=== PATIENT | female | born 1935 | race Caucasian/White ===

== ENCOUNTER 2020-01-04 12:36 | Inpatient (IN) ==
[2020-01-04 15:24] LABS: Basophils # 0.1 10*3/uL (0.0-0.2); Basophils % 0.3 % (0.0-0.8); Hematocrit 36.5 VOL% (35.7-47.0); Hemoglobin 11.9 GM/DL (12.0-16.0); Immature Granulocytes Absolute 0.22 #; Lymphocytes % 4.4 % (21.3-54.2); Mean Corpuscular HGB Conc 32.6 GM/DL (32-36); Mean Corpuscular Volume 81.7 FL (87-102); Mean Platelet Volume 9.8 FL (9.6-12.0); Monocytes % 4.4 % (1.7-12.7); Neutrophils % 89.9 % (38.7-73.9); Platelet Count 247 T/CUMM (130-400); Red Blood Count 4.47 MC/CUMM (3.8-5.5); Red Cell Distribution Width 14.2 % (9.3-17.3); White Blood Count 22.9 T/CUMM (4-12)
[2020-01-04 15:36] LABS: Alanine Aminotransferase 34 U/L (13-56); Albumin 3.3 G/DL (3.4-5.0); Alkaline Phosphatase 88 U/L (45-117); Aspartate Amino Transferase 30 U/L (0-37); Blood Urea Nitrogen 28 MG/DL (7-18); Calcium 9.2 MG/DL (8.5-10.1); Estimated Glom Filtration Rate 28 ML/MIN; Glucose 275 MG/DL (74-106); Osmolality,Calculated 281.4 MOS/KG (273-304); Total Protein 8.1 G/DL (6.4-8.3)
[2020-01-04 15:46] LABS: Apearance,Urine CLOUDY (Clear); Bacteria,Urine Occasional /HPF (Few); Bilirubin,Urine Negative (Negative); Blood, Urine Moderate mg/dL (Negative); Glucose,Urine (UA) 150 mg/dL (Negative); Hyaline Casts,Urine 1 /LPF (0-3); Ketones,Urine 20 mg/dL (Negative); Mucus,Urine Occasional /LPF (Occasional); Nitrite,Urine Negative (Negative); Protein,Urine 100 MG/DL; RBC,Urine 17 /HPF (0-4); Squamous Epithelial Cell,Urine Occasional /HPF (0-10); Transitional Epi Cells,Urine Occasional /HPF (<1); Urine Color Yellow (Yellow); Urine Specific Gravity 1.017 (1.001-1.035); Urine Urobilinogen < 2.0 EU/DL (0.2-1.0); WBC,Urine 66 /HPF (0-6)
[2020-01-04 15:47] LABS: Lymphocytes 6 % (20-55); Segmented Neutrophils 88 % (50-85); Total Cells Counted 100
[2020-01-04 15:48] LABS: Elliptocytes Few; Platelet Estimate Adequate
[2020-01-04] MEDS ORDERED: SODIUM CHLORIDE 0.9% 500 ML IV STA (15:51)
[2020-01-04] MEDS ORDERED: PANTOPRAZOLE 40 MG VIAL IV STA (15:51)
[2020-01-04] MEDS ORDERED: ONDANSETRON 4 MG/2 ML VIAL IV STA (15:51)
[2020-01-04] MEDS ORDERED: cefTRIAXone 1,000 MG in SODIUM CHLORIDE 0.9% 100 ML IV STA (15:51)
[2020-01-04] MEDS ORDERED: SODIUM CHLORIDE 0.9% 1,000 ML IV SCH (19:06)
[2020-01-04] MEDS ORDERED: GLUCAGON 1 MG VIAL IM PRN (19:06)
[2020-01-04] MEDS ORDERED: ONDANSETRON 4 MG/2 ML VIAL IV PRN (19:06)
[2020-01-04] MEDS ORDERED: DEXTROSE 10% 250 ML BAG IV PRN (19:06)
[2020-01-04] MEDS: DOCUSATE SODIUM 100 MG CAPSULE PO SCH (21:42)
[2020-01-04] MEDS: FONDAPARINUX 2.5 MG/0.5 ML SYRINGE SUBCUT SCH (21:42)
[2020-01-05] MEDS: ACETAMINOPHEN 325 MG TABLET PO PRN ×2 (00:30→15:34)
[2020-01-05 05:52] LABS: Basophils # 0.1 10*3/uL (0.0-0.2); Basophils % 0.5 % (0.0-0.8); Eosinophils % 0.1 % (0.00-10.9); Hematocrit 33.1 VOL% (35.7-47.0); Hemoglobin 10.6 GM/DL (12.0-16.0); Immature Granulocytes % 0.6 %; Immature Granulocytes Absolute 0.07 #; Lymphocytes # 1.2 10*3/uL (1.4-4.0); Lymphocytes % 10.5 % (21.3-54.2); Mean Corpuscular Volume 83.6 FL (87-102); Monocytes % 7.2 % (1.7-12.7); Neutrophils % 81.1 % (38.7-73.9); Platelet Count 203 T/CUMM (130-400); Red Blood Count 3.96 MC/CUMM (3.8-5.5); Red Cell Distribution Width 14.1 % (9.3-17.3); White Blood Count 10.9 T/CUMM (4-12)
[2020-01-05 06:09] LABS: Calcium 8.6 MG/DL (8.5-10.1)
[2020-01-05] MEDS: DOCUSATE SODIUM 100 MG CAPSULE PO SCH ×2 (09:23→21:10)
[2020-01-05] MEDS: PANTOPRAZOLE 40 MG TABLET PO SCH (09:23)
[2020-01-05] MEDS: SODIUM CHLORIDE 0.45% 1,000 ML IV SCH (10:15)
[2020-01-05] MEDS: cefTRIAXone 1,000 MG in SYRINGE 1 EACH IV SCH (15:34)
[2020-01-05] MEDS ORDERED: DEXAMETHASONE 0.1% OPH SOLN 5 ML BOTTLE BOTH EYES SCH (21:00)
[2020-01-05] MEDS: SIMVASTATIN 20 MG TABLET PO SCH (21:10)
[2020-01-05] MEDS: GLIMEPIRIDE 2 MG TABLET PO SCH (21:10)
[2020-01-05] MEDS: FONDAPARINUX 2.5 MG/0.5 ML SYRINGE SUBCUT SCH (21:57)
[2020-01-06] MEDS: SODIUM CHLORIDE 0.45% 1,000 ML IV SCH ×2 (06:58→13:37)
[2020-01-06] MEDS: VALSARTAN 80 MG TABLET PO SCH (09:22)
[2020-01-06] MEDS: GLIMEPIRIDE 2 MG TABLET PO SCH ×2 (09:22→20:10)
[2020-01-06] MEDS: PANTOPRAZOLE 40 MG TABLET PO SCH (09:22)
[2020-01-06] MEDS: MELOXICAM 7.5 MG TABLET PO SCH (09:22)
[2020-01-06] MEDS: hydroCHLOROthiazide 12.5 MG CAPSULE PO SCH (09:22)
[2020-01-06] MEDS: LEVOTHYROXINE 100 MCG TABLET PO SCH (09:22)
[2020-01-06] MEDS: DOCUSATE SODIUM 100 MG CAPSULE PO SCH ×2 (09:22→20:10)
[2020-01-06] MEDS: cefTRIAXone 1,000 MG in SYRINGE 1 EACH IV SCH (14:44)
[2020-01-06] MEDS: POTASSIUM CHLORIDE 20 MEQ TABLET PO PRN ×3 (17:53→20:10)
[2020-01-06] MEDS: BRIMONIDINE/TIMOLOL OPH SOLN 5 ML BOTTLE RIGHT EYE SCH (20:10)
[2020-01-06] MEDS: SIMVASTATIN 20 MG TABLET PO SCH (20:10)
[2020-01-06] MEDS: DEXAMETHASONE 0.1% OPH SOLN 5 ML BOTTLE LEFT EYE SCH (20:10)
[2020-01-06] MEDS: FONDAPARINUX 2.5 MG/0.5 ML SYRINGE SUBCUT SCH (20:10)
[2020-01-07] MEDS: SODIUM CHLORIDE 0.45% 1,000 ML IV SCH ×2 (03:33→17:15)
[2020-01-07] MEDS: DOCUSATE SODIUM 100 MG CAPSULE PO SCH ×2 (08:10→20:20)
[2020-01-07] MEDS: hydroCHLOROthiazide 12.5 MG CAPSULE PO SCH (08:10)
[2020-01-07] MEDS: GLIMEPIRIDE 2 MG TABLET PO SCH ×2 (08:10→20:20)
[2020-01-07] MEDS: PANTOPRAZOLE 40 MG TABLET PO SCH (08:10)
[2020-01-07] MEDS: MELOXICAM 7.5 MG TABLET PO SCH (08:10)
[2020-01-07] MEDS: LEVOTHYROXINE 100 MCG TABLET PO SCH (08:10)
[2020-01-07] MEDS: VALSARTAN 80 MG TABLET PO SCH (08:10)
[2020-01-07] MEDS: cefTRIAXone 1,000 MG in SYRINGE 1 EACH IV SCH (17:14)
[2020-01-07] MEDS: FONDAPARINUX 2.5 MG/0.5 ML SYRINGE SUBCUT SCH (20:20)
[2020-01-07] MEDS: SIMVASTATIN 20 MG TABLET PO SCH (20:20)
[2020-01-07] MEDS: BRIMONIDINE/TIMOLOL OPH SOLN 5 ML BOTTLE RIGHT EYE SCH (20:20)
[2020-01-07] MEDS: DEXAMETHASONE 0.1% OPH SOLN 5 ML BOTTLE LEFT EYE SCH (20:20)
[2020-01-07] MEDS: ACETAMINOPHEN 325 MG TABLET PO PRN (20:20)
[2020-01-08 05:52] LABS: Basophils # 0.1 10*3/uL (0.0-0.2); Basophils % 1.1 % (0.0-0.8); Eosinophils # 0.4 10*3/uL (0.0-0.87); Eosinophils % 8.3 % (0.00-10.9); Hemoglobin 9.3 GM/DL (12.0-16.0); Immature Granulocytes % 0.2 %; Immature Granulocytes Absolute 0.01 #; Lymphocytes # 1.4 10*3/uL (1.4-4.0); Lymphocytes % 31.9 % (21.3-54.2); Mean Corpuscular HGB Conc 32.1 GM/DL (32-36); Mean Corpuscular Volume 81.9 FL (87-102); Mean Platelet Volume 9.7 FL (9.6-12.0); Monocytes % 11.2 % (1.7-12.7); Neutrophils % 47.3 % (38.7-73.9); Platelet Count 203 T/CUMM (130-400); Red Blood Count 3.54 MC/CUMM (3.8-5.5); Red Cell Distribution Width 14.1 % (9.3-17.3); White Blood Count 4.5 T/CUMM (4-12)
[2020-01-08 06:26] LABS: Albumin 2.3 G/DL (3.4-5.0); Bilirubin,Total 1.3 MG/DL (0.2-1.0); Osmolality,Calculated 279.5 MOS/KG (273-304); Total Protein 6.2 G/DL (6.4-8.3)
[2020-01-08] MEDS: SODIUM CHLORIDE 0.45% 1,000 ML IV SCH ×2 (07:24→09:41)
[2020-01-08] MEDS: VALSARTAN 80 MG TABLET PO SCH (09:20)
[2020-01-08] MEDS: hydroCHLOROthiazide 12.5 MG CAPSULE PO SCH (09:20)
[2020-01-08] MEDS: DOCUSATE SODIUM 100 MG CAPSULE PO SCH ×2 (09:20→20:24)
[2020-01-08] MEDS: PANTOPRAZOLE 40 MG TABLET PO SCH (09:20)
[2020-01-08] MEDS: GLIMEPIRIDE 2 MG TABLET PO SCH ×2 (09:20→20:24)
[2020-01-08] MEDS: LEVOTHYROXINE 100 MCG TABLET PO SCH (09:20)
[2020-01-08] MEDS: MELOXICAM 7.5 MG TABLET PO SCH (09:20)
[2020-01-08] MEDS: POTASSIUM CHLORIDE 20 MEQ TABLET PO PRN (09:43)
[2020-01-08] MEDS: cefTRIAXone 1,000 MG in SYRINGE 1 EACH IV SCH (14:50)
[2020-01-08] MEDS: FONDAPARINUX 2.5 MG/0.5 ML SYRINGE SUBCUT SCH (20:23)
[2020-01-08] MEDS: SIMVASTATIN 20 MG TABLET PO SCH (20:24)
[2020-01-08] MEDS: BRIMONIDINE/TIMOLOL OPH SOLN 5 ML BOTTLE RIGHT EYE SCH (20:26)
[2020-01-08] MEDS: DEXAMETHASONE 0.1% OPH SOLN 5 ML BOTTLE LEFT EYE SCH (20:26)
[2020-01-09] MEDS ORDERED: OLMESARTAN 20 MG TABLET PO SCH (09:00)
[2020-01-09] MEDS: hydroCHLOROthiazide 12.5 MG CAPSULE PO SCH (09:10)
[2020-01-09] MEDS: VALSARTAN 80 MG TABLET PO SCH (09:17)
[2020-01-09] MEDS: MELOXICAM 7.5 MG TABLET PO SCH (09:18)
[2020-01-09] MEDS: PANTOPRAZOLE 40 MG TABLET PO SCH (09:18)
[2020-01-09] MEDS: LEVOTHYROXINE 100 MCG TABLET PO SCH (09:18)
[2020-01-09] MEDS: DOCUSATE SODIUM 100 MG CAPSULE PO SCH (09:19)
[2020-01-09] MEDS: GLIMEPIRIDE 2 MG TABLET PO SCH (09:19)
[2020-01-09 10:04] VITALS: BP 159/73
== END 2020-01-09 10:55 | disposition home or self-care (01) | DRG 872 ==
LOC: N.ED 12:36 → N.EDINP 17:41 → N.TELEN 17:48 → N.2E 18:06
PROVIDERS: ADMIT Family Medicine; ATTEND Family Medicine

== ENCOUNTER 2020-09-03 09:05 | Inpatient (IN) ==
[2020-09-03] MEDS ORDERED: GLUCAGON 1 MG VIAL IM PRN (10:21)
[2020-09-03] MEDS ORDERED: DEXTROSE 50% 25 GM/50 ML VIAL IV PRN (10:21)
[2020-09-03] MEDS ORDERED: ONDANSETRON 4 MG/2 ML VIAL IV PRN (10:21)
[2020-09-03] MEDS ORDERED: ACETAMINOPHEN 325 MG TABLET PO PRN ×2 (10:21→16:37)
[2020-09-03] MEDS: INSULIN LISPRO 100 UNIT/ML SUBCUT SCH ×3 (12:02→22:08)
[2020-09-03 12:08] LABS: Basophils # 0.1 10*3/uL (0.0-0.2); Basophils % 0.6 % (0.0-0.8); Eosinophils # 0.2 10*3/uL (0.0-0.87); Eosinophils % 1.6 % (0.00-10.9); Hematocrit 38.2 VOL% (35.7-47.0); Hemoglobin 12.9 GM/DL (12.0-16.0); Immature Granulocytes % 0.3 %; Immature Granulocytes Absolute 0.03 #; Lymphocytes # 1.5 10*3/uL (1.4-4.0); Lymphocytes % 15.1 % (21.3-54.2); Mean Corpuscular HGB Conc 33.8 GM/DL (32-36); Mean Corpuscular Volume 80.4 FL (87-102); Mean Platelet Volume 9.8 FL (9.6-12.0); Monocytes % 7.1 % (1.7-12.7); Neutrophils % 75.3 % (38.7-73.9); Platelet Count 274 T/CUMM (130-400); Red Blood Count 4.75 MC/CUMM (3.8-5.5); Red Cell Distribution Width 13.3 % (9.3-17.3); White Blood Count 9.6 T/CUMM (4-12)
[2020-09-03] MEDS: SODIUM CHLORIDE 0.45% 1,000 ML IV SCH (12:09)
[2020-09-03 12:33] LABS: Albumin 3.5 G/DL (3.4-5.0); Bilirubin,Total 0.5 MG/DL (0.2-1.0); Calcium 9.6 MG/DL (8.5-10.1); Total Protein 7.5 G/DL (6.4-8.3)
[2020-09-03 13:01] LABS: Bilirubin,Urine Negative (Negative); Blood, Urine Negative (Negative); Glucose,Urine (UA) Negative (Negative); Hyaline Casts,Urine 3 /LPF (0-3); Ketones,Urine 5 mg/dL (Negative); Mucus,Urine Occasional /LPF (Occasional); Nitrite,Urine Negative (Negative); Protein,Urine Negative; RBC,Urine 1 /HPF (0-4); Squamous Epithelial Cell,Urine Moderate /HPF (0-10); Urine Appearance Slightly Hazy (Clear); Urine Color Yellow (Yellow); Urine Specific Gravity 1.014 (1.001-1.035); Urine Urobilinogen < 2.0 EU/DL (0.2-1.0); WBC,Urine 2 /HPF (0-6)
[2020-09-03] MEDS ORDERED: SODIUM CHLORIDE 0.9% 500 ML IV ONE (16:03)
[2020-09-03] MEDS ORDERED: ENOXAPARIN 30 MG/0.3 ML SYRINGE SUBCUT SCH (21:00)
[2020-09-03] MEDS ORDERED: DEXAMETHASONE 0.1% LEFT EYE SCH (21:00)
[2020-09-03] MEDS ORDERED: BRIMONIDINE/TIMOLOL OPH SOLN 5 ML BOTTLE RIGHT EYE SCH (21:00)
[2020-09-03] MEDS: GLIMEPIRIDE 2 MG TABLET PO SCH (21:33)
[2020-09-03] MEDS: DOCUSATE SODIUM 100 MG CAPSULE PO SCH (21:33)
[2020-09-04] MEDS: SODIUM CHLORIDE 0.45% 1,000 ML IV SCH (01:40)
[2020-09-04 07:39] LABS: Calcium 9.2 MG/DL (8.5-10.1); Osmolality,Calculated 274.8 MOS/KG (273-304)
[2020-09-04] MEDS: DOCUSATE SODIUM 100 MG CAPSULE PO SCH (08:46)
[2020-09-04] MEDS: GLIMEPIRIDE 2 MG TABLET PO SCH (08:47)
[2020-09-04] MEDS ORDERED: hydroCHLOROthiazide 12.5 MG CAPSULE PO SCH (09:00)
[2020-09-04] MEDS ORDERED: PANTOPRAZOLE 40 MG TABLET PO SCH (09:00)
[2020-09-04] MEDS ORDERED: LEVOTHYROXINE 88 MCG TABLET PO SCH (09:00)
[2020-09-04] MEDS ORDERED: amLODIPine 2.5 MG TABLET PO SCH (09:00)
[2020-09-04] MEDS ORDERED: SERTRALINE 25 MG TABLET PO SCH (09:00)
[2020-09-04] MEDS ORDERED: MELOXICAM 7.5 MG TABLET PO SCH (09:00)
[2020-09-04] MEDS ORDERED: OLMESARTAN 20 MG TABLET PO SCH (09:00)
[2020-09-04] MEDS: INSULIN LISPRO 100 UNIT/ML SUBCUT SCH ×2 (09:57→12:28)
[2020-09-04 12:40] VITALS: BP 157/83
== END 2020-09-04 14:02 | disposition home health service (06) | DRG 881 ==
LOC: N.TELES → OBSVTOIN 10:35
PROVIDERS: ADMIT Family Medicine; ATTEND Family Medicine

== ENCOUNTER 2020-09-07 19:34 | Observation (INO) ==
[2020-09-07 20:08] LABS: Basophils % 0.2 % (0.0-0.8); Eosinophils # 0.1 10*3/uL (0.0-0.87); Eosinophils % 0.8 % (0.00-10.9); Hematocrit 30.8 VOL% (35.7-47.0); Hemoglobin 10.7 GM/DL (12.0-16.0); Immature Granulocytes % 0.3 %; Immature Granulocytes Absolute 0.03 #; Lymphocytes # 1.4 10*3/uL (1.4-4.0); Lymphocytes % 15.6 % (21.3-54.2); Mean Corpuscular HGB Conc 34.7 GM/DL (32-36); Mean Corpuscular Volume 78.2 FL (87-102); Mean Platelet Volume 9.3 FL (9.6-12.0); Monocytes # 0.7 10*3/uL (0.11-0.8); Monocytes % 7.1 % (1.7-12.7); Platelet Count 241 T/CUMM (130-400); Red Blood Count 3.94 MC/CUMM (3.8-5.5); Red Cell Distribution Width 13.7 % (9.3-17.3); White Blood Count 9.2 T/CUMM (4-12)
[2020-09-07] MEDS ORDERED: SODIUM CHLORIDE 0.9% 1,000 ML IV STA (20:15)
[2020-09-07 20:16] LABS: Bilirubin,Urine Negative (Negative); Blood, Urine Negative (Negative); Glucose,Urine (UA) 150 mg/dL (Negative); Hyaline Casts,Urine 3 /LPF (0-3); Ketones,Urine Negative (Negative); Mucus,Urine Occasional /LPF (Occasional); Nitrite,Urine Negative (Negative); Protein,Urine Negative; Squamous Epithelial Cell,Urine Occasional /HPF (0-10); Urine Appearance CLEAR (Clear); Urine Color Yellow (Yellow); Urine Specific Gravity 1.013 (1.001-1.035); Urine Urobilinogen < 2.0 EU/DL (0.2-1.0)
[2020-09-07 20:37] LABS: Albumin 3.5 G/DL (3.4-5.0); Bilirubin,Total 0.4 MG/DL (0.2-1.0); Calcium 8.7 MG/DL (8.5-10.1); Osmolality,Calculated 270.2 MOS/KG (273-304); Potassium 4.1 MMOL/L (3.5-5.1); Total Protein 6.9 G/DL (6.4-8.3)
[2020-09-07 20:42] LABS: Acetaminophen < 2.0 UG/ML (10-30); Salicylate < 2.8 MG/DL (2.8-20)
[2020-09-07 21:08] LABS: Barbiturates Screen,Urine Negative (Negative); Benzodiazepines Screen,Urine Negative (Negative); Cannabinoid Screen,Urine Negative (Negative); Opiate Screen,Urine Negative (Negative); Phencyclidine Screen,Urine Negative (Negative)
[2020-09-07 21:29] LABS: ABG Base Excess -0.8 MMOL/L (-2.5-2.5); ABG HCO3 23.7 MMOL/L (20-26); ABG Oxygen Saturation 96.3 % (95-100); ABG PCO2 38.1 MM HG (35-48); ABG PH 7.401 (7.35-7.45); ABG PO2 89.9 MM HG (80-95); ABG TCO2 21.2 MMOL/L (23-27)
[2020-09-07] MEDS ORDERED: ACETAMINOPHEN 325 MG TABLET PO PRN (22:38)
[2020-09-07] MEDS ORDERED: GLUCAGON 1 MG VIAL IM PRN (22:38)
[2020-09-07] MEDS ORDERED: DEXTROSE 50% 25 GM/50 ML VIAL IV PRN (22:38)
[2020-09-07] MEDS ORDERED: ONDANSETRON 4 MG/2 ML VIAL IV PRN (22:38)
[2020-09-08] MEDS ORDERED: hydrALAZINE 20 MG/1 ML VIAL IV ONE (00:47)
[2020-09-08] MEDS ORDERED: INFLUENZA VIRUS VACCINE 0.5 ML SYRINGE IM ONE (04:15)
[2020-09-08 06:07] LABS: Basophils % 0.2 % (0.0-0.8); Eosinophils % 0.2 % (0.00-10.9); Hematocrit 33.5 VOL% (35.7-47.0); Hemoglobin 11.2 GM/DL (12.0-16.0); Immature Granulocytes % 0.5 %; Immature Granulocytes Absolute 0.05 #; Lymphocytes # 1.3 10*3/uL (1.4-4.0); Lymphocytes % 12.2 % (21.3-54.2); Mean Corpuscular HGB Conc 33.4 GM/DL (32-36); Mean Corpuscular Volume 78.5 FL (87-102); Mean Platelet Volume 9.7 FL (9.6-12.0); Monocytes # 0.7 10*3/uL (0.11-0.8); Monocytes % 6.6 % (1.7-12.7); Neutrophils % 80.3 % (38.7-73.9); Platelet Count 289 T/CUMM (130-400); Red Blood Count 4.27 MC/CUMM (3.8-5.5); Red Cell Distribution Width 13.9 % (9.3-17.3); White Blood Count 10.3 T/CUMM (4-12)
[2020-09-08 06:40] LABS: Albumin 3.6 G/DL (3.4-5.0); Bilirubin,Total 0.6 MG/DL (0.2-1.0); Calcium 9.4 MG/DL (8.5-10.1); Osmolality,Calculated 273.7 MOS/KG (273-304); Potassium 4.2 MMOL/L (3.5-5.1); Total Protein 7.2 G/DL (6.4-8.3)
[2020-09-08] MEDS: PANTOPRAZOLE 40 MG TABLET PO SCH (09:53)
[2020-09-08] MEDS: DOCUSATE SODIUM 100 MG CAPSULE PO SCH ×2 (09:53→21:57)
[2020-09-08] MEDS: DEXTROSE 5% NACL 0.9% 1,000 ML IV SCH ×2 (14:40)
[2020-09-08] MEDS: SODIUM CHLORIDE 0.9% 1,000 ML IV SCH (14:40)
[2020-09-08] MEDS: SIMVASTATIN 20 MG TABLET PO SCH (21:57)
[2020-09-08] MEDS: BRIMONIDINE/TIMOLOL OPH SOLN 5 ML BOTTLE RIGHT EYE SCH (21:57)
[2020-09-08] MEDS: DEXAMETHASONE 0.1% OPH SOLN 5 ML BOTTLE LEFT EYE SCH (21:57)
[2020-09-09 05:52] LABS: Basophils % 0.4 % (0.0-0.8); Eosinophils # 0.1 10*3/uL (0.0-0.87); Hematocrit 26.4 VOL% (35.7-47.0); Immature Granulocytes % 0.4 %; Immature Granulocytes Absolute 0.03 #; Lymphocytes # 1.4 10*3/uL (1.4-4.0); Lymphocytes % 18.5 % (21.3-54.2); Mean Corpuscular HGB Conc 34.1 GM/DL (32-36); Mean Platelet Volume 9.2 FL (9.6-12.0); Monocytes # 0.7 10*3/uL (0.11-0.8); Monocytes % 8.9 % (1.7-12.7); Neutrophils % 70.8 % (38.7-73.9); Platelet Count 217 T/CUMM (130-400); Red Cell Distribution Width 14.1 % (9.3-17.3); White Blood Count 7.7 T/CUMM (4-12)
[2020-09-09] MEDS: LEVOTHYROXINE 88 MCG TABLET PO SCH (06:13)
[2020-09-09 06:16] LABS: Calcium 8.4 MG/DL (8.5-10.1); Osmolality,Calculated 283.8 MOS/KG (273-304); Potassium 3.9 MMOL/L (3.5-5.1)
[2020-09-09] MEDS: SERTRALINE 25 MG TABLET PO SCH (08:19)
[2020-09-09] MEDS: PANTOPRAZOLE 40 MG TABLET PO SCH (08:19)
[2020-09-09] MEDS: DOCUSATE SODIUM 100 MG CAPSULE PO SCH ×2 (08:19→21:40)
[2020-09-09] MEDS: amLODIPine 2.5 MG TABLET PO SCH (08:19)
[2020-09-09] MEDS: SODIUM CHLORIDE 0.9% 1,000 ML IV SCH ×2 (08:21→08:30)
[2020-09-09] MEDS: SIMVASTATIN 20 MG TABLET PO SCH (21:40)
[2020-09-09] MEDS: BRIMONIDINE/TIMOLOL OPH SOLN 5 ML BOTTLE RIGHT EYE SCH (22:07)
[2020-09-09] MEDS: DEXAMETHASONE 0.1% OPH SOLN 5 ML BOTTLE LEFT EYE SCH (22:08)
[2020-09-10] MEDS: SODIUM CHLORIDE 0.9% 1,000 ML IV SCH (06:09)
[2020-09-10] MEDS: LEVOTHYROXINE 88 MCG TABLET PO SCH (06:21)
[2020-09-10] MEDS: DOCUSATE SODIUM 100 MG CAPSULE PO SCH ×2 (10:08→20:56)
[2020-09-10] MEDS: amLODIPine 2.5 MG TABLET PO SCH (10:08)
[2020-09-10] MEDS: SERTRALINE 25 MG TABLET PO SCH (10:09)
[2020-09-10] MEDS: PANTOPRAZOLE 40 MG TABLET PO SCH (10:09)
[2020-09-10] MEDS ORDERED: INSULIN LISPRO 100 UNIT/ML ONE ×2 (12:36→12:37)
[2020-09-10] MEDS: INSULIN LISPRO 100 UNIT/ML SUBCUT SCH ×3 (12:38→20:56)
[2020-09-10] MEDS: DEXAMETHASONE 0.1% OPH SOLN 5 ML BOTTLE LEFT EYE SCH (20:56)
[2020-09-10] MEDS: SIMVASTATIN 20 MG TABLET PO SCH (20:56)
[2020-09-10] MEDS: BRIMONIDINE/TIMOLOL OPH SOLN 5 ML BOTTLE RIGHT EYE SCH (20:56)
[2020-09-11] MEDS: SODIUM CHLORIDE 0.9% 1,000 ML IV SCH (02:13)
[2020-09-11] MEDS: LEVOTHYROXINE 88 MCG TABLET PO SCH (05:28)
[2020-09-11 08:20] VITALS: BP 191/86
[2020-09-11] MEDS: INSULIN LISPRO 100 UNIT/ML SUBCUT SCH (08:54)
[2020-09-11] MEDS: SERTRALINE 25 MG TABLET PO SCH (08:54)
[2020-09-11] MEDS: PANTOPRAZOLE 40 MG TABLET PO SCH (08:54)
[2020-09-11] MEDS: DOCUSATE SODIUM 100 MG CAPSULE PO SCH (08:54)
[2020-09-11] MEDS: amLODIPine 2.5 MG TABLET PO SCH (08:54)
== END 2020-09-11 10:54 ==
LOC: EDBD → EDUNIT# → N.ED 19:34 → N.EDINP 19:34 → N.TELEN 23:06
PROVIDERS: ADMIT Family Medicine; ATTEND Family Medicine

== ENCOUNTER 2020-09-08 12:58 | Observation (INO) | END 2020-09-11 23:59 | disposition home or self-care (01) | LOC: N.SDSINP | PROVIDERS: ADMIT Family Medicine; ATTEND Family Medicine ==

== ENCOUNTER 2022-05-20 14:42 | Inpatient (IN) ==
[2022-05-20] MEDS ORDERED: ONDANSETRON 4 MG/2 ML VIAL IV PRN (15:13)
[2022-05-20] MEDS ORDERED: ACETAMINOPHEN 325 MG TABLET PO PRN (15:13)
[2022-05-20] MEDS ORDERED: GLUCAGON 1 MG VIAL IM PRN (15:16)
[2022-05-20] MEDS ORDERED: MAGNESIUM HYDROXIDE SUSP 30 ML UDCUP PO PRN (15:16)
[2022-05-20] MEDS ORDERED: SODIUM CHLORIDE 0.9% 1,000 ML IV PRN (15:25)
[2022-05-20] MEDS: PANTOPRAZOLE 40 MG TABLET PO SCH (17:24)
[2022-05-20] MEDS: SODIUM CHLORIDE 0.9% 1,000 ML IV SCH (17:24)
[2022-05-20] MEDS ORDERED: cloNIDine 0.1 MG TABLET PO PRN (18:11)
[2022-05-20 18:38] LABS: Basophils % 0.5 % (0.0-0.8); Eosinophils # 0.9 10*3/uL (0.0-0.87); Eosinophils % 9.8 % (0.00-10.9); Hematocrit 28.8 VOL% (35.7-47.0); Hemoglobin 7.9 GM/DL (12.0-16.0); Immature Granulocytes % 0.3 %; Immature Granulocytes Absolute 0.03 #; Lymphocytes % 23.4 % (21.3-54.2); Mean Corpuscular HGB Conc 27.4 GM/DL (32-36); Mean Corpuscular Volume 65.6 FL (87-102); Mean Platelet Volume 9.1 FL (9.6-12.0); Monocytes # 0.6 10*3/uL (0.11-0.8); Monocytes % 6.9 % (1.7-12.7); Neutrophils % 59.1 % (38.7-73.9); Platelet Count 228 T/CUMM (130-400); Red Blood Count 4.39 MC/CUMM (3.8-5.5); White Blood Count 8.7 T/CUMM (4-12)
[2022-05-20 18:49] LABS: Platelet Estimate Normal
[2022-05-20 18:51] LABS: Anisocytosis 2+; Hypochromia 2+; Microcytosis 2+; Ovalocytes 1+; Poikilocytosis 1+
[2022-05-20] MEDS ORDERED: guaiFENesin 200 MG/10 ML UDCUP PO PRN (19:06)
[2022-05-20] MEDS: INSULIN REGULAR 100 UNIT/ML SUBCUT SCH (19:14)
[2022-05-20] MEDS ORDERED: amLODIPine 5 MG TABLET PO ONE (20:54)
[2022-05-20] MEDS: carvediloL 3.125 MG TABLET PO SCH (22:14)
[2022-05-20] MEDS: DOCUSATE SODIUM 100 MG CAPSULE PO SCH (22:15)
[2022-05-20] MEDS: SIMVASTATIN 20 MG TABLET PO SCH (22:15)
[2022-05-20] MEDS: INSULIN GLARGINE 100 UNIT/ML SUBCUT SCH (22:15)
[2022-05-20] MEDS: BRIMONIDINE/TIMOLOL OPH SOLN 5 ML BOTTLE RIGHT EYE SCH (22:15)
[2022-05-20] MEDS: guaiFENesin 200 MG/10 ML UDCUP PO PRN (22:16)
[2022-05-21] MEDS: SODIUM CHLORIDE 0.9% 1,000 ML IV SCH ×3 (06:16→21:25)
[2022-05-21] MEDS ORDERED: FUROSEMIDE 20 MG/2 ML VIAL IV ONE (06:23)
[2022-05-21] MEDS: LEVOTHYROXINE 88 MCG TABLET PO SCH (07:16)
[2022-05-21] MEDS: INSULIN REGULAR 100 UNIT/ML SUBCUT SCH ×2 (08:11→16:37)
[2022-05-21] MEDS: GLIMEPIRIDE 2 MG TABLET PO SCH ×2 (09:03→21:23)
[2022-05-21] MEDS: FERROUS SULFATE 300 MG/5 ML UDCUP PO SCH ×2 (09:03→21:24)
[2022-05-21] MEDS: DOCUSATE SODIUM 100 MG CAPSULE PO SCH ×2 (09:03→21:23)
[2022-05-21] MEDS: ISOSORBIDE MONONITRATE 30 MG TABLET PO SCH (09:04)
[2022-05-21] MEDS: amLODIPine 5 MG TABLET PO SCH (09:04)
[2022-05-21] MEDS: SERTRALINE 100 MG TABLET PO SCH (09:04)
[2022-05-21] MEDS: PANTOPRAZOLE 40 MG TABLET PO SCH (09:04)
[2022-05-21] MEDS: carvediloL 3.125 MG TABLET PO SCH ×2 (09:04→21:24)
[2022-05-21 09:51] LABS: Calcium 8.2 MG/DL (8.5-10.1); Osmolality,Calculated 284.3 MOS/KG (273-304); Potassium 3.7 MMOL/L (3.5-5.1)
[2022-05-21 09:54] LABS: Ferritin 6.9 ng/mL (8-252)
[2022-05-21 09:57] LABS: Basophils % 0.4 % (0.0-0.8); Eosinophils # 0.6 10*3/uL (0.0-0.87); Eosinophils % 9.5 % (0.00-10.9); Hematocrit 30.4 VOL% (35.7-47.0); Hemoglobin 8.8 GM/DL (12.0-16.0); Immature Granulocytes % 0.6 %; Immature Granulocytes Absolute 0.04 #; Lymphocytes # 1.2 10*3/uL (1.4-4.0); Lymphocytes % 17.1 % (21.3-54.2); Mean Corpuscular HGB Conc 28.9 GM/DL (32-36); Mean Corpuscular Volume 68.5 FL (87-102); Mean Platelet Volume 8.8 FL (9.6-12.0); Monocytes # 0.4 10*3/uL (0.11-0.8); Neutrophils % 66.4 % (38.7-73.9); Red Blood Count 4.44 MC/CUMM (3.8-5.5); Red Cell Distribution Width 23.9 % (9.3-17.3); White Blood Count 6.7 T/CUMM (4-12)
[2022-05-21 09:59] LABS: Platelet Count 162 T/CUMM (130-400)
[2022-05-21 10:10] LABS: Hypochromia 1+; Microcytosis 2+
[2022-05-21 10:11] LABS: Ovalocytes 1+
[2022-05-21 10:12] LABS: Platelet Estimate Adequate; Polychromasia Slight
[2022-05-21] MEDS ORDERED: IRON SUCROSE 100 MG/5 ML VIAL IV SCH (10:12)
[2022-05-21] MEDS: FERRIC GLUCONATE COMPLEX 125 MG in SODIUM CHLORIDE 0.9% 100 ML IV SCH (12:14)
[2022-05-21] MEDS: INSULIN GLARGINE 100 UNIT/ML SUBCUT SCH (21:24)
[2022-05-21] MEDS: SIMVASTATIN 20 MG TABLET PO SCH (21:24)
[2022-05-21] MEDS: BRIMONIDINE/TIMOLOL OPH SOLN 5 ML BOTTLE RIGHT EYE SCH (21:24)
[2022-05-22 04:21] LABS: Basophils # 0.1 10*3/uL (0.0-0.2); Basophils % 0.6 % (0.0-0.8); Eosinophils # 0.7 10*3/uL (0.0-0.87); Eosinophils % 8.2 % (0.00-10.9); Immature Granulocytes % 0.5 %; Immature Granulocytes Absolute 0.04 #; Lymphocytes # 1.2 10*3/uL (1.4-4.0); Lymphocytes % 14.7 % (21.3-54.2); Mean Corpuscular HGB Conc 28.6 GM/DL (32-36); Mean Corpuscular Volume 68.6 FL (87-102); Mean Platelet Volume 9.2 FL (9.6-12.0); Monocytes # 0.6 10*3/uL (0.11-0.8); Monocytes % 7.7 % (1.7-12.7); NRBC # 0.02 10*3/uL; Neutrophils % 68.3 % (38.7-73.9); Platelet Count 165 T/CUMM (130-400); Red Blood Count 4.08 MC/CUMM (3.8-5.5); Red Cell Distribution Width 23.2 % (9.3-17.3); White Blood Count 8.3 T/CUMM (4-12)
[2022-05-22 04:46] LABS: Calcium 8.2 MG/DL (8.5-10.1); Potassium 3.1 MMOL/L (3.5-5.1)
[2022-05-22] MEDS: DEXTROSE 10% 250 ML BAG IV PRN ×3 (04:55→11:15)
[2022-05-22] MEDS: LEVOTHYROXINE 88 MCG TABLET PO SCH (05:55)
[2022-05-22] MEDS: POTASSIUM CHLORIDE RIDER 10 MEQ/100 ML PREMIX IV PRN ×3 (06:53→16:49)
[2022-05-22] MEDS: INSULIN REGULAR 100 UNIT/ML SUBCUT SCH ×2 (07:36→15:57)
[2022-05-22] MEDS: SODIUM CHLORIDE 0.9% 1,000 ML IV SCH ×2 (07:37→17:55)
[2022-05-22] MEDS: FERRIC GLUCONATE COMPLEX 125 MG in SODIUM CHLORIDE 0.9% 100 ML IV SCH (09:00)
[2022-05-22] MEDS: LACTATED RINGERS 1,000 ML IV SCH (09:00)
[2022-05-22] MEDS: FERROUS SULFATE 300 MG/5 ML UDCUP PO SCH (09:04)
[2022-05-22] MEDS ORDERED: LIDOCAINE 2% 5 ML VIAL ONE (13:19)
[2022-05-22] MEDS ORDERED: ETOMIDATE 20 MG/10 ML VIAL IV ONE (13:19)
[2022-05-22] MEDS ORDERED: propofoL 200 MG/20 ML VIAL IV ONE (13:24)
[2022-05-22] MEDS: GLIMEPIRIDE 2 MG TABLET PO SCH (14:35)
[2022-05-22] MEDS: ISOSORBIDE MONONITRATE 30 MG TABLET PO SCH (14:37)
[2022-05-22] MEDS: amLODIPine 5 MG TABLET PO SCH (14:37)
[2022-05-22] MEDS: DOCUSATE SODIUM 100 MG CAPSULE PO SCH ×2 (14:38→21:41)
[2022-05-22] MEDS: carvediloL 3.125 MG TABLET PO SCH ×2 (14:38→21:41)
[2022-05-22] MEDS: SERTRALINE 100 MG TABLET PO SCH (14:38)
[2022-05-22] MEDS: PANTOPRAZOLE 40 MG TABLET PO SCH (14:38)
[2022-05-22] MEDS ORDERED: BISACODYL 5 MG TABLET PO ONE (15:00)
[2022-05-22] MEDS ORDERED: POLYETHYLENE GLYCOL POWDER 255 GM BOTTLE PO ONE (18:00)
[2022-05-22] MEDS: SIMVASTATIN 20 MG TABLET PO SCH (21:41)
[2022-05-22] MEDS: BRIMONIDINE/TIMOLOL OPH SOLN 5 ML BOTTLE RIGHT EYE SCH (21:42)
[2022-05-23] MEDS: INSULIN GLARGINE 100 UNIT/ML SUBCUT SCH ×2 (02:12→20:41)
[2022-05-23] MEDS: SODIUM CHLORIDE 0.9% 1,000 ML IV SCH ×3 (04:23→18:23)
[2022-05-23 04:51] LABS: Basophils % 0.5 % (0.0-0.8); Eosinophils # 0.4 10*3/uL (0.0-0.87); Hemoglobin 8.4 GM/DL (12.0-16.0); Immature Granulocytes % 0.3 %; Immature Granulocytes Absolute 0.03 #; Lymphocytes # 1.3 10*3/uL (1.4-4.0); Lymphocytes % 15.3 % (21.3-54.2); Mean Corpuscular Volume 68.1 FL (87-102); Mean Platelet Volume 8.5 FL (9.6-12.0); Monocytes # 0.7 10*3/uL (0.11-0.8); Monocytes % 8.2 % (1.7-12.7); Neutrophils % 70.7 % (38.7-73.9); Platelet Count 168 T/CUMM (130-400); Red Blood Count 4.26 MC/CUMM (3.8-5.5); Red Cell Distribution Width 23.7 % (9.3-17.3); White Blood Count 8.7 T/CUMM (4-12)
[2022-05-23 04:58] LABS: INR 1.1; PT Patient Result 11.7 SECS (10.1-12.1)
[2022-05-23] MEDS ORDERED: POLYETHYLENE GLYCOL POWDER 255 GM BOTTLE PO ONE (05:00)
[2022-05-23] MEDS: DEXTROSE 10% 250 ML BAG IV PRN (09:16)
[2022-05-23] MEDS: LACTATED RINGERS 1,000 ML IV SCH ×2 (11:16→16:22)
[2022-05-23] MEDS ORDERED: propofoL 200 MG/20 ML VIAL IV ONE (12:20)
[2022-05-23] MEDS: FERRIC GLUCONATE COMPLEX 125 MG in SODIUM CHLORIDE 0.9% 100 ML IV SCH (13:31)
[2022-05-23] MEDS: PANTOPRAZOLE 40 MG TABLET PO SCH (14:03)
[2022-05-23] MEDS: SERTRALINE 100 MG TABLET PO SCH (14:03)
[2022-05-23] MEDS: GLIMEPIRIDE 2 MG TABLET PO SCH (14:03)
[2022-05-23] MEDS: amLODIPine 5 MG TABLET PO SCH (14:03)
[2022-05-23] MEDS: DOCUSATE SODIUM 100 MG CAPSULE PO SCH ×2 (14:03→20:36)
[2022-05-23] MEDS: ISOSORBIDE MONONITRATE 30 MG TABLET PO SCH (14:03)
[2022-05-23] MEDS: carvediloL 3.125 MG TABLET PO SCH ×2 (14:03→20:37)
[2022-05-23] MEDS: LEVOTHYROXINE 88 MCG TABLET PO SCH (14:03)
[2022-05-23] MEDS: INSULIN REGULAR 100 UNIT/ML SUBCUT SCH ×2 (14:06→19:28)
[2022-05-23] MEDS: SIMVASTATIN 20 MG TABLET PO SCH (20:37)
[2022-05-23] MEDS: BRIMONIDINE/TIMOLOL OPH SOLN 5 ML BOTTLE RIGHT EYE SCH (20:38)
[2022-05-24] MEDS: SODIUM CHLORIDE 0.9% 1,000 ML IV SCH ×2 (04:30→18:10)
[2022-05-24] MEDS: LEVOTHYROXINE 88 MCG TABLET PO SCH (06:14)
[2022-05-24] MEDS: SERTRALINE 100 MG TABLET PO SCH (09:34)
[2022-05-24] MEDS: amLODIPine 5 MG TABLET PO SCH (09:34)
[2022-05-24] MEDS: ISOSORBIDE MONONITRATE 30 MG TABLET PO SCH (09:34)
[2022-05-24] MEDS: FERRIC GLUCONATE COMPLEX 125 MG in SODIUM CHLORIDE 0.9% 100 ML IV SCH (09:35)
[2022-05-24] MEDS: DOCUSATE SODIUM 100 MG CAPSULE PO SCH ×2 (09:35→22:38)
[2022-05-24] MEDS: PANTOPRAZOLE 40 MG TABLET PO SCH (09:35)
[2022-05-24] MEDS: carvediloL 3.125 MG TABLET PO SCH ×2 (09:35→22:38)
[2022-05-24] MEDS: INSULIN REGULAR 100 UNIT/ML SUBCUT SCH ×2 (09:36→18:10)
[2022-05-24] MEDS: GLIMEPIRIDE 2 MG TABLET PO SCH (09:38)
[2022-05-24] MEDS: LACTATED RINGERS 1,000 ML IV SCH ×2 (09:38→15:00)
[2022-05-24] MEDS: BRIMONIDINE/TIMOLOL OPH SOLN 5 ML BOTTLE RIGHT EYE SCH (22:38)
[2022-05-24] MEDS: SIMVASTATIN 20 MG TABLET PO SCH (22:38)
[2022-05-24] MEDS: INSULIN GLARGINE 100 UNIT/ML SUBCUT SCH (22:39)
[2022-05-25] MEDS: SODIUM CHLORIDE 0.9% 1,000 ML IV SCH ×2 (04:30→16:19)
[2022-05-25] MEDS: LEVOTHYROXINE 88 MCG TABLET PO SCH (05:55)
[2022-05-25 06:25] LABS: Basophils % 0.4 % (0.0-0.8); Eosinophils # 0.5 10*3/uL (0.0-0.87); Eosinophils % 7.5 % (0.00-10.9); Hematocrit 25.8 VOL% (35.7-47.0); Hemoglobin 7.3 GM/DL (12.0-16.0); Immature Granulocytes % 0.4 %; Immature Granulocytes Absolute 0.03 #; Lymphocytes # 0.9 10*3/uL (1.4-4.0); Lymphocytes % 13.7 % (21.3-54.2); Mean Corpuscular HGB Conc 28.3 GM/DL (32-36); Mean Corpuscular Volume 70.9 FL (87-102); Mean Platelet Volume 9.2 FL (9.6-12.0); Monocytes # 0.6 10*3/uL (0.11-0.8); Monocytes % 9.3 % (1.7-12.7); Neutrophils % 68.7 % (38.7-73.9); Platelet Count 170 T/CUMM (130-400); Red Blood Count 3.64 MC/CUMM (3.8-5.5); Red Cell Distribution Width 24.7 % (9.3-17.3); White Blood Count 6.8 T/CUMM (4-12)
[2022-05-25 06:42] LABS: Calcium 8.3 MG/DL (8.5-10.1); Osmolality,Calculated 287.8 MOS/KG (273-304); Potassium 3.5 MMOL/L (3.5-5.1)
[2022-05-25 07:29] LABS: Platelet Estimate Adequate
[2022-05-25] MEDS: LACTATED RINGERS 1,000 ML IV SCH ×2 (08:23→08:24)
[2022-05-25] MEDS: GLIMEPIRIDE 2 MG TABLET PO SCH (08:25)
[2022-05-25] MEDS: ISOSORBIDE MONONITRATE 30 MG TABLET PO SCH (08:25)
[2022-05-25] MEDS: DOCUSATE SODIUM 100 MG CAPSULE PO SCH ×2 (08:25→21:03)
[2022-05-25] MEDS: carvediloL 3.125 MG TABLET PO SCH ×2 (08:25→21:03)
[2022-05-25] MEDS: SERTRALINE 100 MG TABLET PO SCH (08:25)
[2022-05-25] MEDS: PANTOPRAZOLE 40 MG TABLET PO SCH (08:25)
[2022-05-25] MEDS: amLODIPine 5 MG TABLET PO SCH (08:25)
[2022-05-25] MEDS: INSULIN REGULAR 100 UNIT/ML SUBCUT SCH ×2 (08:27→18:30)
[2022-05-25] MEDS: FERROUS SULFATE 300 MG/5 ML UDCUP PO SCH ×2 (08:31→21:03)
[2022-05-25] MEDS ORDERED: LORATADINE 10 MG TABLET PO ONE (11:46)
[2022-05-25] MEDS: guaiFENesin 200 MG/10 ML UDCUP PO PRN (13:57)
[2022-05-25] MEDS: AZITHROMYCIN INJ 500 MG in SODIUM CHLORIDE 0.9% 250 ML IV SCH (13:57)
[2022-05-25] MEDS: LORATADINE 10 MG TABLET PO SCH (16:56)
[2022-05-25] MEDS: SIMVASTATIN 20 MG TABLET PO SCH (21:03)
[2022-05-25] MEDS: BRIMONIDINE/TIMOLOL OPH SOLN 5 ML BOTTLE RIGHT EYE SCH (21:04)
[2022-05-25] MEDS: INSULIN GLARGINE 100 UNIT/ML SUBCUT SCH (21:04)
[2022-05-25] MEDS ORDERED: SODIUM CHLORIDE 0.9% 1,000 ML IV PRN (21:31)
[2022-05-26] MEDS: LEVOTHYROXINE 88 MCG TABLET PO SCH (05:48)
[2022-05-26] MEDS: SODIUM CHLORIDE 0.9% 1,000 ML IV SCH ×2 (08:49→10:39)
[2022-05-26] MEDS: INSULIN REGULAR 100 UNIT/ML SUBCUT SCH ×2 (08:49→17:56)
[2022-05-26] MEDS: LACTATED RINGERS 1,000 ML IV SCH ×2 (08:50→09:27)
[2022-05-26] MEDS: GLIMEPIRIDE 2 MG TABLET PO SCH (09:26)
[2022-05-26] MEDS: LORATADINE 10 MG TABLET PO SCH (09:27)
[2022-05-26] MEDS: SERTRALINE 100 MG TABLET PO SCH (09:27)
[2022-05-26] MEDS: carvediloL 3.125 MG TABLET PO SCH ×2 (09:27→21:15)
[2022-05-26] MEDS: DOCUSATE SODIUM 100 MG CAPSULE PO SCH ×2 (09:27→21:15)
[2022-05-26] MEDS: ISOSORBIDE MONONITRATE 30 MG TABLET PO SCH (09:28)
[2022-05-26] MEDS: amLODIPine 5 MG TABLET PO SCH (09:28)
[2022-05-26] MEDS: guaiFENesin 200 MG/10 ML UDCUP PO PRN (09:28)
[2022-05-26] MEDS: PANTOPRAZOLE 40 MG TABLET PO SCH (09:28)
[2022-05-26] MEDS: FERROUS SULFATE 300 MG/5 ML UDCUP PO SCH ×2 (09:28→21:16)
[2022-05-26 11:00] LABS: Hemoglobin 11.3 GM/DL (12.0-16.0)
[2022-05-26] MEDS: AZITHROMYCIN INJ 500 MG in SODIUM CHLORIDE 0.9% 250 ML IV SCH (12:43)
[2022-05-26] MEDS: BRIMONIDINE/TIMOLOL OPH SOLN 5 ML BOTTLE RIGHT EYE SCH (21:15)
[2022-05-26] MEDS: SIMVASTATIN 20 MG TABLET PO SCH (21:16)
[2022-05-26] MEDS: INSULIN GLARGINE 100 UNIT/ML SUBCUT SCH (21:16)
[2022-05-27] MEDS: SODIUM CHLORIDE 0.9% 1,000 ML IV SCH ×2 (01:15→11:28)
[2022-05-27] MEDS: LEVOTHYROXINE 88 MCG TABLET PO SCH (05:45)
[2022-05-27] MEDS: INSULIN REGULAR 100 UNIT/ML SUBCUT SCH ×2 (07:12→17:31)
[2022-05-27] MEDS: LACTATED RINGERS 1,000 ML IV SCH ×2 (07:12)
[2022-05-27] MEDS ORDERED: GLUCAGON 1 MG VIAL IM PRN (09:40)
[2022-05-27] MEDS ORDERED: DEXTROSE 10% 250 ML BAG IV PRN (09:49)
[2022-05-27] MEDS: GLIMEPIRIDE 2 MG TABLET PO SCH (11:27)
[2022-05-27] MEDS: carvediloL 3.125 MG TABLET PO SCH ×2 (11:27→21:02)
[2022-05-27] MEDS: ISOSORBIDE MONONITRATE 30 MG TABLET PO SCH (11:27)
[2022-05-27] MEDS: PANTOPRAZOLE 40 MG TABLET PO SCH (11:27)
[2022-05-27] MEDS: amLODIPine 5 MG TABLET PO SCH (11:28)
[2022-05-27] MEDS: LORATADINE 10 MG TABLET PO SCH (11:28)
[2022-05-27] MEDS: DOCUSATE SODIUM 100 MG CAPSULE PO SCH ×2 (11:28→21:02)
[2022-05-27] MEDS: FERROUS SULFATE 300 MG/5 ML UDCUP PO SCH ×2 (11:28→21:02)
[2022-05-27] MEDS: SERTRALINE 100 MG TABLET PO SCH (11:28)
[2022-05-27] MEDS: AZITHROMYCIN INJ 500 MG in SODIUM CHLORIDE 0.9% 250 ML IV SCH (12:04)
[2022-05-27] MEDS ORDERED: ALBUTEROL/IPRATROPIUM 3 ML NEB RESP TX PRN (17:04)
[2022-05-27] MEDS: INSULIN GLARGINE 100 UNIT/ML SUBCUT SCH (21:02)
[2022-05-27] MEDS: BRIMONIDINE/TIMOLOL OPH SOLN 5 ML BOTTLE RIGHT EYE SCH (21:02)
[2022-05-27] MEDS: guaiFENesin 200 MG/10 ML UDCUP PO PRN (21:03)
[2022-05-27] MEDS: SIMVASTATIN 20 MG TABLET PO SCH (21:03)
[2022-05-28] MEDS: SODIUM CHLORIDE 0.9% 1,000 ML IV SCH
[2022-05-28] MEDS: LEVOTHYROXINE 88 MCG TABLET PO SCH (06:03)
[2022-05-28 06:13] LABS: Hematocrit 40.6 VOL% (35.7-47.0); Hemoglobin 12.2 GM/DL (12.0-16.0)
[2022-05-28] MEDS: INSULIN REGULAR 100 UNIT/ML SUBCUT SCH ×2 (07:43→18:22)
[2022-05-28] MEDS: SERTRALINE 100 MG TABLET PO SCH (09:24)
[2022-05-28] MEDS: PANTOPRAZOLE 40 MG TABLET PO SCH (09:24)
[2022-05-28] MEDS: GLIMEPIRIDE 2 MG TABLET PO SCH (09:24)
[2022-05-28] MEDS: ISOSORBIDE MONONITRATE 30 MG TABLET PO SCH (09:24)
[2022-05-28] MEDS: amLODIPine 5 MG TABLET PO SCH (09:24)
[2022-05-28] MEDS: DOCUSATE SODIUM 100 MG CAPSULE PO SCH ×2 (09:25→21:17)
[2022-05-28] MEDS: FUROSEMIDE 40 MG/4 ML VIAL IV SCH (09:25)
[2022-05-28] MEDS: FERROUS SULFATE 300 MG/5 ML UDCUP PO SCH ×2 (09:25→21:17)
[2022-05-28] MEDS: carvediloL 3.125 MG TABLET PO SCH ×2 (09:25→21:17)
[2022-05-28] MEDS: LORATADINE 10 MG TABLET PO SCH (09:25)
[2022-05-28] MEDS: AZITHROMYCIN INJ 500 MG in SODIUM CHLORIDE 0.9% 250 ML IV SCH (12:24)
[2022-05-28] MEDS: SIMVASTATIN 20 MG TABLET PO SCH (21:17)
[2022-05-28] MEDS: BRIMONIDINE/TIMOLOL OPH SOLN 5 ML BOTTLE RIGHT EYE SCH (21:18)
[2022-05-28] MEDS: INSULIN GLARGINE 100 UNIT/ML SUBCUT SCH (21:18)
[2022-05-29] MEDS: LEVOTHYROXINE 88 MCG TABLET PO SCH (06:09)
[2022-05-29] MEDS: FUROSEMIDE 40 MG/4 ML VIAL IV SCH (08:37)
[2022-05-29] MEDS: PANTOPRAZOLE 40 MG TABLET PO SCH (08:37)
[2022-05-29] MEDS: LORATADINE 10 MG TABLET PO SCH (08:38)
[2022-05-29] MEDS: ISOSORBIDE MONONITRATE 30 MG TABLET PO SCH (08:38)
[2022-05-29] MEDS: DOCUSATE SODIUM 100 MG CAPSULE PO SCH (08:38)
[2022-05-29] MEDS: amLODIPine 5 MG TABLET PO SCH (08:38)
[2022-05-29] MEDS: SERTRALINE 100 MG TABLET PO SCH (08:38)
[2022-05-29] MEDS: FERROUS SULFATE 300 MG/5 ML UDCUP PO SCH (08:38)
[2022-05-29] MEDS: carvediloL 3.125 MG TABLET PO SCH (08:38)
[2022-05-29] MEDS: INSULIN REGULAR 100 UNIT/ML SUBCUT SCH (08:38)
[2022-05-29] MEDS: GLIMEPIRIDE 2 MG TABLET PO SCH (08:38)
[2022-05-29 11:49] VITALS: BP 138/66
[2022-05-29] MEDS: AZITHROMYCIN INJ 500 MG in SODIUM CHLORIDE 0.9% 250 ML IV SCH (13:07)
== END 2022-05-29 15:14 | disposition home health service (06) | DRG 812 ==
LOC: N.TELES 15:08
PROVIDERS: ADMIT Internal Medicine; ATTEND Family Medicine